=== PATIENT | female | born 1985 | race Caucasian/White ===

== ENCOUNTER 2017-07-14 19:24 | Emergency (ER) | payer OTHER ==
[2017-07-14 21:06] LABS: CALCIUM 8.6 mg/dL (8.5-10.1); CARBON DIOXIDE 28.6 mmol/L (21-32); CHLORIDE SERUM 106 mmol/L (98-107); CREATININE SERUM 0.7 mg/dL (0.6-1.0); GFR1 > 60 mL/min; GLUCOSE SERUM 93 mg/dL (74-106); POTASSIUM SERUM 3.7 mmol/L (3.5-5.1); SODIUM SERUM 140 mmol/L (136-145)
[2017-07-14 22:03] VITALS: BP 116/73
== END 2017-07-14 22:03 | disposition home or self-care (01) ==
LOC: ED 19:24
PROVIDERS: Emergency Medicine
DX: K59.00 Constipation, unspecified (principal); R33.9 Retention of urine, unspecified
CPT/HCPCS: 36415; J3010

== ENCOUNTER 2019-02-09 21:17 | Emergency (ER) | payer OTHER ==
[~2019-02-09] VITALS: Ht 162.6 cm; Wt 75.3 kg
[2019-02-09 21:29] VITALS: Ht 162.6 cm; Wt 75.3 kg
[2019-02-09 22:05] LABS: BASOPHIL % 0.9 % (0-2); PLATELET COUNT 279 x10^3mcL (130-400); RED CELL DISTRIBUTION WIDTH 14.3 % (11.5-14.5)
[2019-02-09 22:20] LABS: ALBUMIN 3.7 g/dL (3.4-5.0); ALKALINE PHOSPHATASE 52 U/L (46-116); ALT/SGPT 23 U/L (14-59); AST/SGOT 16 U/L (15-37); BILIRUBIN TOTAL 0.5 mg/dL (0.20-1.00); CALCIUM 9.2 mg/dL (8.5-10.1); CARBON DIOXIDE 31.1 mmol/L (21-32); CHLORIDE SERUM 97 mmol/L (98-107); CREATININE SERUM 0.6 mg/dL (0.6-1.0); GFR1 > 60 mL/min; GLUCOSE SERUM 95 mg/dL (74-106); SODIUM SERUM 135 mmol/L (136-145); TOTAL PROTEIN, SERUM 6.9 g/dL (6.4-8.2)
[2019-02-09 22:22] LABS: POTASSIUM SERUM 2.9 mmol/L (3.5-5.1)
[2019-02-09 23:52] VITALS: BP 131/81
== END 2019-02-09 23:52 | disposition home or self-care (01) ==
LOC: ED 21:17
PROVIDERS: Emergency Medicine
DX: S00.83XA Contusion of other part of head, initial encounter (principal); F41.9 Anxiety disorder, unspecified; X58.XXXA Exposure to other specified factors, initial encounter; Y93.89 Activity, other specified; Y92.89 Other specified places as the place of occurrence of the external cause; Y99.8 Other external cause status; Z98.890 Other specified postprocedural states
CPT/HCPCS: G0480; J1885; J2060; J7030